=== PATIENT | female | born 1980 | race Caucasian/White ===

== ENCOUNTER 2022-06-28 06:55 | Emergency (ER) | payer MEDICAID ==
[~2022-06-28] VITALS: Ht 157.5 cm; Wt 59.1 kg
[~2022-06-28 06:55] MED LIST: NOCURR
[2022-06-28] MEDS ORDERED: LIDOCAINE/PF 1% 5 ML VIAL PERC ONE (07:30)
[2022-06-28] MEDS ORDERED: LIDOCAINE 1% 10 ML VIAL PERC ONE (07:30)
[2022-06-28] MEDS ORDERED: SULF-261 PO (08:46)
[2022-06-28] MEDS ORDERED: CEPH-558 PO (08:47)
[2022-06-28 09:34] VITALS: BP 122/72
== END 2022-06-28 09:35 | disposition home or self-care (01) ==
LOC: EMS 06:57
DX: S81.002A Unspecified open wound, left knee, initial encounter (principal); X58.XXXA Exposure to other specified factors, initial encounter; Y93.89 Activity, other specified; Y92.89 Other specified places as the place of occurrence of the external cause; Y99.8 Other external cause status
CPT/HCPCS: 10160; 99283; J2001

== ENCOUNTER 2023-05-05 17:32 | Emergency (ER) | payer MEDICAID ==
[~2023-05-05] VITALS: Ht 154.9 cm; Wt 70.5 kg
[~2023-05-05 17:32] MED LIST changes: +CEPH-558 PO; +SULF-261 PO
[2023-05-05 17:40] VITALS: TEMP 98.2
[2023-05-05 17:50] VITALS: BP 113/74; PULSE 98; RESP 18
[2023-05-05] MEDS ORDERED: IBUP-1554 PO (18:21)
[2023-05-05] MEDS ORDERED: CORTSUSP AS (18:21)
[2023-05-05] MEDS ORDERED: CEPH-558 PO (18:21)
== END 2023-05-05 18:33 | disposition home or self-care (01) ==
LOC: EMS 17:33
DX: H60.92 Unspecified otitis externa, left ear (principal); H66.92 Otitis media, unspecified, left ear
CPT/HCPCS: 99283; Z7502